=== PATIENT | female | born 1950 | race Caucasian/White ===

== ENCOUNTER → 2021-05-23 | Outpatient (CLI) | payer MEDICARE ==
[~2021-05-23] MED LIST: ALPRazolam 1MG TAB ONE; GADOTERATE 10 MMOL/20ML SYR ONE
== END | disposition home or self-care (01) ==
LOC: EDSTATUS 08:30 → RAD 08:37
PROVIDERS: ATTEND Registered Nurse
DX: G31.9 Degenerative disease of nervous system, unspecified (principal); G43.109 Migraine with aura, not intractable, without status migrainosus; G43.709 Chronic migraine without aura, not intractable, without status migrainosus
CPT/HCPCS: 70553; A9575